=== PATIENT | male | born 1985 | race Caucasian/White ===

== ENCOUNTER 2023-11-21 19:52 | Emergency (ER) | payer OTHER ==
[~2023-11-21] VITALS: Ht 177.8 cm; Wt 81.6 kg
[2023-11-21 20:26] VITALS: BP 113/63; PULSE 60; RESP 20; TEMP 98.4; O2SAT 95
[2023-11-21] MEDS ORDERED: CYCL-711 PO (21:20)
[2023-11-21] MEDS ORDERED: NAPR-337 PO (21:20)
[2023-11-21] MEDS ORDERED: LID5T TP (21:20)
[2023-11-21] MEDS: HYDROcodone/APAP 10/325 MG 1 TAB TAB PO PRN (21:33)
[2023-11-21] MEDS ORDERED: ACET-8905 PO (21:50)
[2023-11-21] MEDS: LIDOCAINE 5% 1 EA PATCH TP ONE (22:13)
== END 2023-11-21 22:20 | disposition home or self-care (01) ==
LOC: MED 19:52
DX: M62.830 Muscle spasm of back (principal); Z88.5 Allergy status to narcotic agent; Z88.8 Allergy status to other drugs, medicaments and biological substances; Z79.899 Other long term (current) drug therapy
CPT/HCPCS: 99283

== ENCOUNTER 2024-04-09 22:52 | Emergency (ER) | payer OTHER ==
[~2024-04-09] VITALS: Ht 177.8 cm; Wt 102.1 kg
[~2024-04-09 22:52] MED LIST: ACET-8905 PO; CYCL-711 PO; LID5T TP; NAPR-337 PO
[2024-04-09 23:06] VITALS: BP 114/77; PULSE 60; RESP 18; TEMP 97.5; O2SAT 99
[2024-04-10] MEDS: IBUPROFEN 600 MG TAB PO ONE (00:11)
[2024-04-10] MEDS ORDERED: LEVO750T75 PO (00:26)
[2024-04-10 00:35] VITALS: BP 114/77; PULSE 60; RESP 18; TEMP 97.5; O2SAT 99
== END 2024-04-10 00:35 | disposition home or self-care (01) ==
LOC: MED 22:52
DX: S91.332A Puncture wound without foreign body, left foot, initial encounter (principal); Z79.899 Other long term (current) drug therapy; Z88.8 Allergy status to other drugs, medicaments and biological substances; Z88.6 Allergy status to analgesic agent; W45.0XXA Nail entering through skin, initial encounter; Y92.89 Other specified places as the place of occurrence of the external cause; Y93.89 Activity, other specified; Y99.8 Other external cause status
CPT/HCPCS: 73630; 90471; 90715; 99283; Q0092

== ENCOUNTER 2024-04-11 09:12 | Emergency (ER) | payer OTHER ==
[~2024-04-11] VITALS: Ht 177.8 cm; Wt 102.1 kg
[~2024-04-11 09:12] MED LIST changes: +LEVO750T75 PO
[2024-04-11 09:16] VITALS: BP 119/69; PULSE 51; RESP 16; TEMP 98; O2SAT 98
== END 2024-04-11 09:48 | disposition home or self-care (01) ==
LOC: MED 09:12
DX: S91.332D Puncture wound without foreign body, left foot, subsequent encounter (principal); Z48.00 Encounter for change or removal of nonsurgical wound dressing; Z79.899 Other long term (current) drug therapy; Z88.6 Allergy status to analgesic agent; Z88.8 Allergy status to other drugs, medicaments and biological substances; W45.0XXD Nail entering through skin, subsequent encounter
CPT/HCPCS: 99282